=== PATIENT | female | born 2000 | race Two or more races ===

== ENCOUNTER → 2024-09-04 | Outpatient (REF) | payer OTHER | LOC: M LAB REF 16:24 | PROVIDERS: ATTEND Physician Assistant | DX: B34.9 Viral infection, unspecified (principal) ==

== ENCOUNTER 2025-06-17 18:02 | Emergency (ER) | payer OTHER ==
[~2025-06-17] VITALS: Ht 157.5 cm; Wt 60.0 kg
[~2025-06-17 18:02] MED LIST: CETI-24 PO; PRED20TA PO
[2025-06-17] MEDS: ACETAMINOPHEN 500 MG TAB PO ONE (19:25)
[2025-06-17] MEDS: KETOROLAC 60 MG/2 ML VIAL IM ONE (19:25)
[2025-06-17] MEDS ORDERED: OXYC-517 PO (20:13)
[2025-06-17] MEDS ORDERED: IBUP600T42 PO (20:13)
[2025-06-17 20:20] VITALS: BP 128/72; TEMP 99.1; O2SAT 100
== END 2025-06-17 20:29 | disposition home or self-care (01) ==
LOC: M ED 18:02
DX: S92.351A Displaced fracture of fifth metatarsal bone, right foot, initial encounter for closed fracture (principal); W22.03XA Walked into furniture, initial encounter; Y92.009 Unspecified place in unspecified non-institutional (private) residence as the place of occurrence of the external cause; Y93.9 Activity, unspecified; Y99.9 Unspecified external cause status
CPT/HCPCS: 73630; 96372; 99284; J1885